=== PATIENT | female | born 1980 | race African-American/Black ===

== ENCOUNTER 2019-11-30 20:38 | Emergency (ER) | payer MEDICAID ==
[~2019-11-30] VITALS: Ht 165.1 cm; Wt 119.7 kg
[2019-11-30 23:17] VITALS: BP 138/97
== END 2019-11-30 23:53 | disposition home or self-care (01) ==
LOC: ER 20:42
DX: J06.9 Acute upper respiratory infection, unspecified (principal); R11.2 Nausea with vomiting, unspecified
CPT/HCPCS: 87804

== ENCOUNTER 2021-05-14 20:51 | Emergency (ER) | payer MEDICAID, OTHER ==
[~2021-05-14] VITALS: Ht 165.1 cm; Wt 119.7 kg
[2021-05-14 22:19] LABS: Basophils # (auto) 0.1 10 ^3/uL (0-0.2); Eosinophils # (auto) 0.2 10 ^3/uL (0-0.8); Monocytes # (auto) 0.6 10 ^3/uL (0-1.3); Neutrophils # (auto) 5.6 10 ^3/uL (1.6-8.6); Nucleated Red Blood Cells % 0.1 %; Red Blood Cells 4.91 10^6/uL (4.0-5.20)
[2021-05-14 22:20] LABS: Basophils % (auto) 0.5 % (0.0-2.0); Eosinophils % (auto) 1.9 % (0.0-7.0); Hemoglobin 10.8 g/dL (12.2-16.2); Lymphocytes # (auto) 3.7 10 ^3/uL (0.4-5.4); Lymphocytes % (auto) 36.8 % (10.0-50.0); Mean Corpuscular Hemoglobin 21.9 pg (28.0-32.0); Mean Corpuscular Hgb Conc. 31.6 g/dL (32.0-36.0); Mean Corpuscular Volume 69.4 fL (80.0-100.0); Monocytes % (auto) 5.5 % (0.0-12.0); Neutrophils % (auto) 55.3 % (37.0-80.0); Red Cell Distribution Width 18.8 % (11.8-14.3); White Blood Cell 10.1 10^3/uL (4.4-10.8)
[2021-05-14 22:37] LABS: Albumin 2.9 g/dL (3.4-5.0); Anion Gap 5 (5-15); Blood Urea Nitrogen 6 mg/dL (7-18); Calcium 8.5 mg/dL (8.5-10.1); Carbon Dioxide 25 mmol/L (21-32); Chloride 108 mmol/L (98-107); Glucose 87 mg/dL (74-106); Magnesium 2.2 mg/dL (1.6-2.6); Potassium 4.1 mmol/L (3.5-5.1); Sodium 138 mmol/L (136-145)
[2021-05-14 22:43] LABS: Alanine Aminotransferase 23 U/L (13-56); Alkaline Phosphatase 80 U/L (45-117); Aspartate Aminotransferase 16 U/L (15-37); BUN/Creatinine Ratio 9.5; Bilirubin, Total 0.3 mg/dL (0.2-1.0); GFR African American 134 mL/min; GFR Non-African American 111 mL/min; Total Protein 7.6 g/dL (6.4-8.2)
[2021-05-14 22:52] LABS: INR 0.95 (0.9-1.15)
[2021-05-14] MEDS ORDERED: IOHEXOL 350 MG/ML 100ML IJ ONE (23:09)
[2021-05-15 00:57] VITALS: BP 146/98
== END 2021-05-15 04:31 | disposition home or self-care (01) ==
LOC: ER 20:54
DX: R07.89 Other chest pain (principal); Z88.0 Allergy status to penicillin
CPT/HCPCS: 36415; 71045; 71275; 80053; 83735; 83880; 84484; 84702; 85025; 85379; 85610; 93005; 93971; 99285; Q9967